=== PATIENT | female | born 1995 | race Caucasian/White ===

== ENCOUNTER 2018-05-16 19:23 | Emergency (ER) | payer BC ==
[2018-05-16 19:35] VITALS: BP 115/80
--- NOTE | 2018-05-16 19:57 | ED ---
HPI Febrile Illness - History of Current Complaint Chief Complaint: UCRespiratory Time Seen by Provider: 05/16/18 19:33 Hx Obtained From: Patient Hx Last Menstrual Period: NOW Onset/Duration: Started Hours Ago, Still Present Timing: Constant, Lasting Hours Temperature: 102.1 F Initial Severity: Moderate Current Severity: Moderate Pain Intensity: 5 Pain Scale Used: 0-10 Numeric Aggravating Factors: Nothing Alleviating Factors: Nothing - Allergy/Home Medications Allergies/Adverse Reactions: Allergies Allergy/AdvReac Type Severity Reaction Status Date / Time latex Allergy Severe RASH, Verified 05/16/18 19:36 ITCHING mold Allergy ITCHY EYES Verified 05/16/18 19:36 Home Medications: Home Medications Acetaminophen [Mapap] 1,000 mg PO PRN 05/16/18 [History] Control* 1 tab PO DAILY 05/16/18 [History Confirmed 05/16/18] PMH/Surg Hx/FS Hx/Imm Hx GI History: Reports: Hx Gastroesophageal Reflux Disease Psychiatric History: Reports: Hx Attention Deficit Hyperactivity Disorder - Surgical History Surgery Procedure, Year, and Place: WISDOM TEETH Infectious Disease History: No Infectious Disease History: Reports: Traveled Outside the [place] in Last 30 Days - [place] - Family History Known Family History: Negative: Cardiac Disease, Hypertension, Diabetes - Social History Alcohol Use: Occasionally Substance Use Type: Reports: None Smoking Status (MU): Never Smoked Tobacco Physical Exam Vital Signs On Initial Exam: Initial Vitals Temp Pulse Resp BP Pulse Ox 98.8 F 76 16 115/80 100 05/16/18 19:31 05/16/18 19:31 05/16/18 19:31 05/16/18 19:31 05/16/18 19:31 Diagnostics - Vital Signs Vital Signs Temp Pulse Resp BP Pulse Ox 05/16/18 19:31 98.8 F 76 16 115/80 100 - Laboratory Lab Statement: Any lab studies that have been ordered have been reviewed, and results considered in the medical decision making process. Discharge - Discharge Plan Referrals: [facility], [facility] [Primary Care Provider] -
[2018-05-16] MEDS ORDERED: Ibuprofen TAB* 600 MG PO ONE (20:01)
[2018-05-16] MEDS ORDERED: Amoxicillin/Clavulanate TAB* 875 MG PO ONE (20:01)
--- NOTE | 2018-05-16 20:08 | UC ---
HPI Febrile Illness - HPI Summary HPI Summary: This is davie Patterson documenting for attending Max Lr MD. This patient is a 23 year old F presenting to [facility] with a chief complaint of R- sided sore throat that began yesterday and worsened today. The patient rates the pain 5/10 in severity. Symptoms aggravated by nothing. Fever was alleviated by ibuprofen. Patient reports general myalgia, decreased appetite, fever (began today, max 102.7F today), and feeling out of it. - History of Current Complaint Chief Complaint: UCRespiratory Time Seen by Provider: 05/16/18 19:33 Hx Obtained From: Patient Hx Last Menstrual Period: NOW Onset/Duration: Started Hours Ago, Still Present Timing: Constant, Lasting Hours Temperature: 102.1 F Initial Severity: Moderate Current Severity: Moderate Pain Intensity: 5 Pain Scale Used: 0-10 Numeric Aggravating Factors: Nothing Alleviating Factors: Nothing Associated Signs and Symptoms: Other: - Positive general myalgia, decreased appetite, fever (began today, max 102.7F today), and feeling out of it. - Allergy/Home Medications Allergies/Adverse Reactions: Allergies Allergy/AdvReac Type Severity Reaction Status Date / Time latex Allergy Severe RASH, Verified 05/16/18 19:36 ITCHING mold Allergy ITCHY EYES Verified 05/16/18 19:36 Home Medications: Home Medications Acetaminophen [Mapap] 1,000 mg PO PRN 05/16/18 [History] Control* 1 tab PO DAILY 05/16/18 [History Confirmed 05/16/18] PMH/Surg Hx/FS Hx/Imm Hx Previously Healthy: No GI/ History: Gastroesophageal Reflux Psychological History: Other - ADHD Other Psychological History: ADHD - Surgical History Surgical History: Yes Surgery Procedure, Year, and Place: WISDOM TEETH - Family History Known Family History: Negative: Cardiac Disease, Hypertension, Diabetes - Social History Occupation: Student Lives: With Family Alcohol Use: Occasionally Substance Use Type: None Smoking Status (MU): Never Smoked Tobacco Review of Systems Constitutional: Fever, Other - Positive feeling "out of it" ENT: Sore Throat Gastrointestinal: Other - Positive decreased appetite All Other Systems Reviewed And Are Negative: Yes Physical Exam - Summary Physical Exam Summary: VITAL SIGNS: Reviewed. GENERAL: Patient is a well-developed and nourished female who is lying comfortable in the stretcher. Patient is not in any acute respiratory distress. HEAD AND FACE: Normocephalic EYES: PERRLA, EOMI x 2. EARS: Hearing grossly intact. MOUTH: Oropharynx within normal limits. Enlarged tonsil with white discharge NECK: Supple, trachea is midline, no adenopathy, no JVD, no carotid bruit. CHEST: Symmetric, no tenderness at palpation LUNGS: Clear to auscultation bilaterally. No wheezing or crackles. CVS: Regular rate and rhythm, S1 and S2 present, no murmurs or gallops appreciated. ABDOMEN: Soft, non-tender. Bowel sounds are normal. No abdominal abnormal pulsations. EXTREMITIES: Full ROM in all major joints, no edema, no cyanosis or clubbing. NEURO: Alert and oriented x 3. No acute neurological deficits. Speech is normal and follows commands. SKIN: Dry and warm Triage Information Reviewed: Yes Vital Signs: Initial Vital Signs Temp 98.8 F 05/16/18 19:31 Pulse 76 05/16/18 19:31 Resp 16 05/16/18 19:31 BP 115/80 05/16/18 19:31 Pulse Ox 100 05/16/18 19:31 Vital Signs Reviewed: Yes Course/Dx - Course Assessment/Plan: Patient rapid strep test is negative. However the patient has the swelling right tonsil, with positive exudate therefore the patient will be given commenting on ibuprofen and the urgent care. The patient will be discharged home with a prescription for Augmentin and she will take ibuprofen as needed. Patient was instructed to follow with the primary care physician in the next 2-3 days and if the symptoms worsen she'll go to the emergency room for further workup and management. She understands and agrees. Patient is hemodynamically stable alert and oriented 3 - Diagnoses Clinic Provider Diagnoses: Pharyngitis Discharge - Sign-Out/Discharge Documenting (check all that apply): Patient Departure - Discharge Plan Condition: Stable Disposition: HOME Prescriptions: Amoxicillin/Clavulanate TAB* [Augmentin TAB 875*] 875 mg PO BID #20 tab Patient Education Materials: Pharyngitis (ED) [facility] - Additional Instructions: Take medications as instructed and adhere to plan Take Acetaminophen or ibuprofen for pain or fever Increase your fluid intake Return to the or go to the emergency department if symptoms worsen Follow-up with primary care physician in next 2-3 days - Billing Disposition and Condition Condition: STABLE Disposition: Home
== END 2018-05-16 20:28 | disposition home or self-care (01) ==
LOC: UCEAST 19:23
DX: J02.9 Acute pharyngitis, unspecified (principal); M79.1 Myalgia; R50.9 Fever, unspecified; K21.9 Gastro-esophageal reflux disease without esophagitis; F90.9 Attention-deficit hyperactivity disorder, unspecified type; Z91.040 Latex allergy status
CPT/HCPCS: 87651; 99212; A9270-GY; G0463